=== PATIENT | male | born 1980 | race Caucasian/White ===

== ENCOUNTER 2023-03-08 18:39 | Emergency (ER) | payer OTHER, BC ==
[2023-03-08 18:59] VITALS: BP 115/71; PULSE 76; RESP 18; TEMP 98; BMI 23.7
[2023-03-08] MEDS ORDERED: CEPHALEXIN MONOHYDRATE 500 MG CAPSULE (UD) PO ONE (21:06)
[2023-03-08] MEDS ORDERED: CEPHALEXIN MONOHYDRATE 500 MG CAPSULE (UD) ONE (21:09)
== END 2023-03-08 21:19 | disposition home or self-care (01) ==
LOC: FER 18:39
DX: S81.811A Laceration without foreign body, right lower leg, initial encounter (principal); S80.11XA Contusion of right lower leg, initial encounter; W20.8XXA Other cause of strike by thrown, projected or falling object, initial encounter; Y92.9 Unspecified place or not applicable
CPT/HCPCS: 73590-TC-RT-FY; 99283-25